=== PATIENT | female | born 1940 | race Caucasian/White ===

== ENCOUNTER 2017-11-11 04:50 | Emergency (ER) | payer OTHER, MEDICARE ==
[~2017-11-11] VITALS: Ht 157.5 cm; Wt 86.1 kg
[2017-11-11] MEDS ORDERED: LORTAB 5-325 M1 EACH PO (07:50)
[2017-11-11] MEDS ORDERED: MOTRIN600 MG PO (07:50)
[2017-11-11] MEDS ORDERED: COLACE100 MG PO (07:50)
[2017-11-11 08:05] VITALS: BP 118/66
== END 2017-11-11 08:06 | disposition home or self-care (01) ==
LOC: EME 04:50
PROC: 2W3DX1Z Immobilization of Left Lower Arm using Splint (ICD-10-PCS; principal; 2017-11-11)
DX: S52.602A Unspecified fracture of lower end of left ulna, initial encounter for closed fracture (principal); S09.90XA Unspecified injury of head, initial encounter; K21.9 Gastro-esophageal reflux disease without esophagitis; E78.5 Hyperlipidemia, unspecified; W10.9XXA Fall (on) (from) unspecified stairs and steps, initial encounter; Z90.49 Acquired absence of other specified parts of digestive tract
CPT/HCPCS: 70450; 73090; 73110; 99281; 99285